=== PATIENT | female | born 1970 | race Caucasian/White ===

== ENCOUNTER 2019-04-17 10:26 | Outpatient (CLI) | payer OTHER, SELFPAY ==
[2019-04-17 13:40] LABS: Alanine Aminotransferase 36 U/L (4-35); Albumin Level 4.5 g/dL (3.5-5.1); Alkaline Phosphatase 61 U/L (38-126); Aspartate Amino Transferase 43 U/L (14-36); Bilirubin,Total 0.5 mg/dL (0.2-1.3); Blood Urea Nitrogen 10 mg/dL (7-17); Calcium 9.5 mg/dL (8.4-10.2); Carbon Dioxide 19 mmol/L (22-30); Chloride 97 mmol/L (98-107); Cholesterol 176 mg/dL (0-200); Estimated Glomerular Filt Rate > 60; Glucose 195 mg/dL (65-105); Potassium 4.5 mmol/L (3.4-5.0); Sodium 135 mmol/L (137-145)
[2019-04-17 13:52] LABS: Free T4 Free Thyroxine 1.04 ng/mL (0.78-2.19)
[2019-04-17 13:59] LABS: Triglycerides 2123 mg/dL (<150)
[2019-04-21 14:44] LABS: Glutamic acid decarboxylase AA 17 IU/mL (<5)
[2019-04-22 00:52] LABS: Islet Cell Antibody Screen NEGATIVE (NEGATIVE)
== END 2019-04-17 10:27 | disposition home or self-care (01) ==
LOC: ANHWCLAB 10:30
PROVIDERS: PCP Internal Medicine; Visit Provider Internal Medicine Endocrinology, Diabetes & Metabolism
DX: E04.2 Nontoxic multinodular goiter (principal); E11.65 Type 2 diabetes mellitus with hyperglycemia; E78.1 Pure hyperglyceridemia
CPT/HCPCS: 36415; 80053; 80061; 84439; 84443; 84681; 86341

== ENCOUNTER 2019-04-24 12:55 | Outpatient (CLI) | payer OTHER, SELFPAY ==
--- NOTE | ~2019-04-24 | US_ITS ---
EXAMINATION: US FNA w image guidance DATE: 04/24/2019 13:59 INDICATION: Enlarging nontoxic single thyroid nodule TECHNIQUE: A time-out was performed to verify the patient's name, date of , and procedure to be performed . The procedure and its benefits and risks were discussed with the patient. Risks specifically discus sed included bleeding and infection. The patient understood the risks and agreed to proceed. The neck was prepped and draped in the usual sterile manner. 3 mL 1% lidocaine was used for local anesthesia . 6 passes were made with a 25G needle into the lesion. Appropriate needle location was documented with continuous sonographic guidance. The specimens were passed to the nuclear medical technologist i n the room. A sterile bandage was applied. There were no immediate complications. FINDINGS: Grayscale ultrasound images demonstrate needles advanced into the 1.9 x 1.6 x 1.4 cm mixed solid and cystic right thyroid nodule of concern for biopsy. IMPRESSION: 1. Successful ultrasound-guided fine needle aspiration of the enlarging 1.9 cm mixed solid cystic ri ght thyroid nodule of concern. Reviewed, dictated and finalized at location A. ETRICIAN GYNECOLOGIST IMPRESSION: 1. Successful ultrasound-guided fine needle aspiration of the enlarging 1.9 cm mixed solid cystic right thyroid nodule of concern.
== END 2019-04-24 12:56 | disposition home or self-care (01) ==
LOC: ANHIMG 12:58
PROVIDERS: PCP Internal Medicine; Visit Provider Internal Medicine Endocrinology, Diabetes & Metabolism
DX: E04.1 Nontoxic single thyroid nodule (principal)
CPT/HCPCS: 10005; 88173; 88305

== ENCOUNTER 2021-01-21 14:36 | Outpatient (CLI) | payer OTHER, SELFPAY ==
--- NOTE | ~2021-01-21 | XR_ITS ---
EXAMINATION: XR_[id number]_CR EXAM DATE: 01/21/2021 14:59 INDICATION: Neck arthralgia. TECHNIQUE: Cervical spine frontal, lateral, lateral swimmers, and open-mouth odontoid projections. There is no prior study for comparison. FINDINGS: Mild to moderate disc disease C5-6 and 6-7. 2 mm anterolisthesis C4 on C5. The vertebral b hailey and disc heights are otherwise well maintained. The vertebral bodies are otherwise aligned. Lung apices are clear. Paraspinal soft tissue is unremarkable. Prevertebral soft tissue and pre-dens space are within normal limits. The odontoid process is intact. The lateral masses of C1 line up with C2. Up to moderate cervical facet and lower cervical uncovertebral joint arthropathy. IMPRESSION: 1. Mild to moderate lower cervical disc disease. 2. Up to moderate arthropathy. Reviewed, dictated and finalized at location B. ICIANS ASSISTANT
== END 2021-01-21 14:37 | disposition home or self-care (01) ==
LOC: ANHIMG 14:39
PROVIDERS: PCP Internal Medicine; Visit Provider Pain Medicine Pain Medicine
DX: M47.22 Other spondylosis with radiculopathy, cervical region (principal)
CPT/HCPCS: 72040

== ENCOUNTER → 2021-03-26 13:52 | Outpatient (CLI) | payer OTHER, SELFPAY ==
--- NOTE | ~2021-03-26 | US_ITS ---
EXAMINATION: US thyroid DATE: 03/26/2021 14:12 INDICATION: Thyroid nodule. TECHNIQUE: Multiple ultrasound images of the thyroid were obtained. COMPARISON: Ultrasound 02/06/2019, 03/24/2011, 04/24/2019 FINDINGS: The right thyroid lobe measures 5.8 x 1.7 x 1.7 cm. The left thyroid lobe measures 5.3 x 1.5 x 1.6 c m. In the right thyroid lobe, there is a 1.7 cm predominantly solid, hypoechoic, [id number] nod ule with smooth margin and macrocalcifications (TI-RADS TR4) stable from the time of the fine needle aspiration on 04/24/2019. In the left thyroid lobe, there is a 7 mm solid, very hypoechoic, wider-than- tall nodule with smooth margin without echogenic foci (TR4). In the left thyroid lobe, there is a 7 m m solid, hypoechoic, wider than than tall nodule with lobulated margin without echogenic foci (TR4). IMPRESSION: 1. Multinodular goiter, stable from 02/06/19. Reviewed, dictated and finalized at location E. ENT LOAN COUNSELOR
== END ==
PROVIDERS: PCP Internal Medicine; Visit Provider Internal Medicine Endocrinology, Diabetes & Metabolism
DX: E04.2 Nontoxic multinodular goiter (principal)
CPT/HCPCS: 76536

== ENCOUNTER 2021-09-23 13:03 | Outpatient (CLI) | payer OTHER, SELFPAY ==
--- NOTE | ~2021-09-23 | CT_ITS ---
EXAMINATION: CT brain wo con DATE: 09/23/2021 13:29 INDICATION: Osteomas of the head. Migraine headache. TECHNIQUE: Computed tomography (CT) of the head was performed without intravenous contrast. The mA wa s adjusted according to patient size. Iterative reconstruction technique was employed. The dose-lengt h product was 681.00 mGy-cm. COMPARISON: None FINDINGS: There is no intracranial hemorrhage, acute infarction, or abnormal intracranial mass lesion . The ventricles are normal in size. The orbits are normal. There is mild mucosal thickening in the e thmoid sinuses. The mastoid air cells are normal. There is focal thickening of the outer table of the skull involving the left parietal bone in the patient's area of concern where there is a skin marker , consistent with an osteoma. IMPRESSION: 1. 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 Reviewed, dictated and finalized at location A. IMPRESSION: 1. 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
== END 2021-09-23 13:04 | disposition home or self-care (01) ==
PROVIDERS: PCP Internal Medicine; Visit Provider Internal Medicine
DX: G43.909 Migraine, unspecified, not intractable, without status migrainosus (principal); D16.9 Benign neoplasm of bone and articular cartilage, unspecified
CPT/HCPCS: 70450

== ENCOUNTER 2024-08-28 11:15 | Outpatient (CLI) | payer OTHER, SELFPAY ==
--- NOTE | ~2024-08-28 | US_ITS ---
EXAMINATION: US thyroid DATE: 08/28/2024 12:01 INDICATION: Nontoxic multinodular goiter TECHNIQUE: Multiple ultrasound images of the thyroid were obtained. COMPARISON: 02/06/2019 FINDINGS: The right thyroid lobe measures 6.1 x 2.0 x 1.9 cm. The left thyroid lobe measures 4.6 x 1.5 x 1.7 c m. There are couple nodules in the inferior right thyroid. The largest one of them tall predominantl y solid, hypoechoic with smooth margins and without echogenic foci. (TI-RADS 4, moderately suspicious , FNA if >=1.5 cm, annual followup is >=1 cm). The second solid hypoechoic nodule is also wider than tall measuring 7 mm with ill-defined margins and without echogenic foci, also TI-RADS 4. There are c ouple additional subcentimeter TI-RADS 4 nodules with similar imaging features in the left thyroid lo be measuring 7 mm in the superior gland and 4 mm in the mid gland. IMPRESSION: 1. Multinodular goiter with no significant change in size of the only nodule meeting criteria for bio psy which was biopsied in 04/24/2019 with pathology consistent with benign follicular nodule with feat ures of hemorrhagic cyst. Reviewed, dictated and finalized at location A. IMPRESSION: 1. Multinodular goiter with no significant change in size of the only nodule me eting criteria for biopsy which was biopsied in 04/24/2019 with pathology consis tent with benign follicular nodule with features of hemorrhagic cyst.
== END 2024-08-28 11:16 | disposition home or self-care (01) ==
LOC: MICIMG 11:16
PROVIDERS: PCP Family Medicine; Visit Provider Internal Medicine Endocrinology, Diabetes & Metabolism
DX: E04.2 Nontoxic multinodular goiter (principal)
CPT/HCPCS: 76536

== ENCOUNTER 2024-08-28 11:17 | Outpatient (CLI) | payer OTHER, SELFPAY ==
--- NOTE | ~2024-08-28 | US_ITS ---
Limited Abdominal Sonogram: Real-time sonographic imaging of the right upper quadrant was performed. Clinical History: Fatty liver Findings: The liver appears echogenic with no evidence of mass lesion or bile duct dilatation. Main portal vein demonstrates normal direction of flow. The gallbladder is absent, compatible prior cholec ystectomy. The common bile duct measures 4 mm. The visualized pancreas, aorta, and IVC are unremarka ble. Right kidney unremarkable. Impression: Diffuse fatty infiltration of liver. Status post cholecystectomy. Reviewed, dictated and finalized at location M. Impression: Diffuse fatty infiltration of liver. Status post cholecystectomy.
== END 2024-08-28 11:18 | disposition home or self-care (01) ==
LOC: MICIMG 11:17
PROVIDERS: PCP Family Medicine; Visit Provider Family Medicine
DX: K76.0 Fatty (change of) liver, not elsewhere classified (principal)
CPT/HCPCS: 76705

== ENCOUNTER 2024-08-28 11:18 | Outpatient (CLI) | payer OTHER, SELFPAY ==
--- NOTE | ~2024-08-28 | XR_ITS ---
Right Shoulder Technique: AP and axillary views were obtained. Clinical History: Arthralgia Findings: No fracture or dislocation is seen. Osseous alignment is anatomic. The glenohumeral and acr omioclavicular joints demonstrate minimal degenerative change. Soft tissues are unremarkable. Impression: Minimal degenerative change, as above. Reviewed, dictated and finalized at location . Impression: Minimal degenerative change, as above.
== END 2024-08-28 11:19 | disposition home or self-care (01) ==
LOC: MICIMG 11:19
PROVIDERS: PCP Pain Medicine Pain Medicine; Visit Provider Pain Medicine Pain Medicine
DX: M25.511 Pain in right shoulder (principal)
CPT/HCPCS: 73030